=== PATIENT | female | born 1950 | race Caucasian/White ===

== ENCOUNTER 2021-11-14 08:02 | Inpatient (IN) ==
[2021-11-14] MEDS ORDERED: 0.9 % Sodium Chloride 500 ML IVC ONE (08:21)
[2021-11-14] MEDS ORDERED: Isovue-370 500 ML BOTTLE IVP ONE (08:47)
[2021-11-14 09:00] LABS: Bacteria,Urine Moderate per hpf (None-Few); Bilirubin,Urine Negative (Negative); Blood,Urine Moderate (Negative); Clarity,Urine Ex.Turbid (Clear); Color,Urine Orange (Yellow); Glucose,Urine (UA) Normal (Normal); Ketones,Urine Negative (Negative); Leukocyte Esterase,Urine Large (Negative); Mucus,Urine Few per lpf (None-Few); Nitrite,Urine Negative (Negative); Protein,Urine 100 mg/dL (Neg-Trace); Specific Gravity,Urine 1.013 (1.010-1.025); Squamous Epithelial Cell,Urine Moderate per hpf (None-Few); WBC,Urine TNTC per hpf (0-3)
[2021-11-14 09:42] LABS: Hemoglobin 10.6 g/dL (11.5-15.4); Mean Platelet Volume 10.6 fL (9.4-12.4)
[2021-11-14 09:43] LABS: Hematocrit 35.4 % (35.3-44.9); Mean Corpuscular HGB Conc 29.9 g/dL (31.6-35.5); Mean Corpuscular Hemoglobin 28.1 pg (28.0-33.3); Mean Corpuscular Volume 93.9 fL (83.0-100.0); Platelet Count 545 K/mcL (140-400); Red Blood Count 3.77 M/mcL (3.82-4.97)
[2021-11-14] MEDS ORDERED: cefTRIAXone 1,000 MG in 0.9 % Sodium Chloride Mini Bag 100 ML IVPB ONE (09:58)
[2021-11-14] MEDS ORDERED: Azithromycin 500 MG in 0.9 % Sodium Chloride 250 ML IVPB ONE (09:58)
[2021-11-14 10:03] LABS: Alanine Aminotransferase 23 Units/L (7-52); Albumin 2.6 g/dL (3.5-5.7); Albumin/Globulin Ratio 0.7 (1.1-2.2); Alkaline Phosphatase 157 Units/L (34-104); Amylase 91 Units/L (29-103); Aspartate Amino Transferase 32 Units/L (13-39); BUN/Creatinine Ratio 69 (6-26); Bilirubin,Direct 0.3 mg/dL (0.0-0.2); Bilirubin,Indirect 0.4 mg/dL (0.0-1.0); Bilirubin,Total 0.7 mg/dL (0.3-1.0); Blood Urea Nitrogen 72 mg/dL (8-23); Carbon Dioxide 13 mEq/L (23-29); Chloride 101 mEq/L (98-107); Globulin 3.8 g/dL (2.4-3.5); Glucose 288 mg/dL (70-105); Lipase 71 Units/L (11-82); Osmolality,Calculated 306 (280-300); Potassium 4.3 mEq/L (3.5-5.1); Sodium 132 mEq/L (136-145); Total Protein 6.4 g/dL (6.4-8.9); Troponin I < 0.03 ng/mL (< 0.04); eGFR For African Americans > 60 (> 60); eGFR For Non-African Americans 53 (> 60)
[2021-11-14] MEDS ORDERED: 0.9 % Sodium Chloride 1,000 ML IVC ONE (10:24)
[2021-11-14 10:31] LABS: INR 1.4; Prothrombin Time 15.4 Seconds (9.4-12.1)
[2021-11-14 10:34] LABS: Activated Partial Thrombo Time 25.1 Seconds (26.0-36.0)
[2021-11-14 11:00] LABS: Monocytes # 2.3 K/mcL (0.0-1.3); Neutrophils # 32.7 K/mcL (1.6-8.9); Platelet Clumps Few (Not Present); Platelet Estimate Increased (Normal); Toxic Granulation Present (Not Present)
[2021-11-14 15:12] LABS: Influenza A PCR Negative (Negative); Influenza B PCR Negative (Negative); Resp. Syncytial Virus PCR Negative (Negative)
[2021-11-14 15:23] LABS: SARS-CoV-2 by PCR (In House) Negative (Negative)
[2021-11-14] MEDS ORDERED: Acetaminophen 325 MG TABLET PO PRN (15:27)
[2021-11-14] MEDS ORDERED: Naloxone 0.4 MG/ML INJ IVP PRN (15:27)
[2021-11-14] MEDS ORDERED: Ringers Solution, Lactated 1,000 ML IVC ONE (15:37)
[2021-11-14] MEDS: Ringers Solution, Lactated 1,000 ML IVC SCH (22:15)
[2021-11-15 02:18] LABS: Alanine Aminotransferase 19 Units/L (7-52); Albumin 2.1 g/dL (3.5-5.7); Albumin/Globulin Ratio 0.6 (1.1-2.2); Alkaline Phosphatase 137 Units/L (34-104); Aspartate Amino Transferase 31 Units/L (13-39); BUN/Creatinine Ratio 89 (6-26); Bilirubin,Total 0.3 mg/dL (0.3-1.0); Blood Urea Nitrogen 62 mg/dL (8-23); Calcium 7.3 mg/dL (8.6-10.3); Carbon Dioxide 11 mEq/L (23-29); Chloride 111 mEq/L (98-107); Globulin 3.7 g/dL (2.4-3.5); Glucose 74 mg/dL (70-105); Lactate Dehydrogenase 242 Units/L (140-271); Magnesium 2.4 mg/dL (1.6-2.6); Osmolality,Calculated 298 (280-300); Phosphorous 3.9 mg/dL (2.7-4.5); Potassium 4.3 mEq/L (3.5-5.1); Sodium 136 mEq/L (136-145); Total Protein 5.8 g/dL (6.4-8.9); eGFR For African Americans > 60 (> 60); eGFR For Non-African Americans > 60 (> 60)
[2021-11-15 02:47] LABS: Carcinoembryonic Antigen 10.2 ng/mL (Less than 5.0)
[2021-11-15 02:48] LABS: Thyroid Stimulating Hormone 2.615 mcIU/mL (0.340-5.600)
[2021-11-15] MEDS: *HR* Enoxaparin 40 MG/0.4 ML SYRINGE SQ SCH (06:40)
[2021-11-15] MEDS: Ringers Solution, Lactated 1,000 ML IVC SCH (06:40)
[2021-11-15] MEDS ORDERED: cefTRIAXone 1,000 MG in 0.9 % Sodium Chloride Mini Bag 100 ML IVP SCH (09:00)
[2021-11-15] MEDS ORDERED: Azithromycin 500 MG in 0.9 % Sodium Chloride 250 ML IVPB SCH (09:00)
[2021-11-15 10:12] LABS: Hematocrit 30.5 % (35.3-44.9); Hemoglobin 9.3 g/dL (11.5-15.4); Mean Corpuscular HGB Conc 30.5 g/dL (31.6-35.5); Mean Corpuscular Hemoglobin 27.9 pg (28.0-33.3); Mean Corpuscular Volume 91.6 fL (83.0-100.0); Mean Platelet Volume 10.2 fL (9.4-12.4); Platelet Count 404 K/mcL (140-400); Red Blood Count 3.33 M/mcL (3.82-4.97); White Blood Count 17.3 K/mcL (4.3-11.1)
[2021-11-15 10:14] LABS: VBG HCO3 17 mEq/L (21-27); VBG PCO2 27 mmHg (41-51); VBG PH 7.41 pH Units (7.32-7.42); VBG PO2 101 mmHg (25-50)
[2021-11-15] MEDS: Sodium Bicarbonate 75 MEQ in 0.45 % Sodium Chloride 1,000 ML IVC SCH ×2 (10:57→21:18)
[2021-11-16 03:43] LABS: Basophils % 0.1 %; Hematocrit 27.5 % (35.3-44.9); Immature Granulocytes % 1.2 % (0-4); Lymphocytes % 12.2 %; Mean Corpuscular HGB Conc 30.9 g/dL (31.6-35.5); Mean Corpuscular Hemoglobin 28.5 pg (28.0-33.3); Mean Corpuscular Volume 92.3 fL (83.0-100.0); Mean Platelet Volume 10.3 fL (9.4-12.4); Monocytes # 0.7 K/mcL (0.0-1.3); Monocytes % 4.9 %; Neutrophils # 11.7 K/mcL (1.6-8.9); Platelet Count 357 K/mcL (140-400); Red Blood Count 2.98 M/mcL (3.82-4.97); Segmented Neutrophils % 81.6 %
[2021-11-16 03:47] LABS: Hemoglobin 8.5 g/dL (11.5-15.4); Lymphocytes # 1.7 K/mcL (0.6-4.6); White Blood Count 14.3 K/mcL (4.3-11.1)
[2021-11-16 04:00] LABS: BUN/Creatinine Ratio 61 (6-26); Blood Urea Nitrogen 35 mg/dL (8-23); Calcium 7.4 mg/dL (8.6-10.3); Carbon Dioxide 21 mEq/L (23-29); Chloride 111 mEq/L (98-107); Glucose 89 mg/dL (70-105); Osmolality,Calculated 299 (280-300); Potassium 3.4 mEq/L (3.5-5.1); Sodium 141 mEq/L (136-145); eGFR For African Americans > 60 (> 60); eGFR For Non-African Americans > 60 (> 60)
[2021-11-16] MEDS: *HR* Enoxaparin 40 MG/0.4 ML SYRINGE SQ SCH (07:01)
[2021-11-16] MEDS ORDERED: cefTRIAXone 1,000 MG in 0.9 % Sodium Chloride Mini Bag 100 ML IVPB SCH (09:00)
[2021-11-16] MEDS: Sodium Bicarbonate 75 MEQ in 0.45 % Sodium Chloride 1,000 ML IVC SCH ×2 (13:10→13:14)
[2021-11-16] MEDS: Piperacillin/Tazobactam 3.375 GM in 0.9 % Sodium Chloride Mini Bag 100 ML IVPB SCH (17:23)
[2021-11-17] MEDS: Piperacillin/Tazobactam 3.375 GM in 0.9 % Sodium Chloride Mini Bag 100 ML IVPB SCH ×4 (01:17→23:39)
[2021-11-17] MEDS: *HR* Enoxaparin 40 MG/0.4 ML SYRINGE SQ SCH (06:41)
[2021-11-17] MEDS: Sodium Bicarbonate 75 MEQ in 0.45 % Sodium Chloride 1,000 ML IVC SCH ×3 (10:46→20:58)
[2021-11-18] MEDS: *HR* Enoxaparin 40 MG/0.4 ML SYRINGE SQ SCH (06:17)
[2021-11-18] MEDS: Piperacillin/Tazobactam 3.375 GM in 0.9 % Sodium Chloride Mini Bag 100 ML IVPB SCH (07:50)
[2021-11-18 07:54] LABS: Hematocrit 28.6 % (35.3-44.9); Hemoglobin 8.6 g/dL (11.5-15.4); Mean Corpuscular HGB Conc 30.1 g/dL (31.6-35.5); Mean Corpuscular Hemoglobin 27.7 pg (28.0-33.3); Mean Platelet Volume 10.4 fL (9.4-12.4); Platelet Count 282 K/mcL (140-400); Red Blood Count 3.11 M/mcL (3.82-4.97); Red Cell Distribution Width 15.5 % (11.5-14.5); White Blood Count 10.3 K/mcL (4.3-11.1)
[2021-11-18] MEDS: Sodium Bicarbonate 75 MEQ in 0.45 % Sodium Chloride 1,000 ML IVC SCH (07:57)
[2021-11-18 08:18] LABS: BUN/Creatinine Ratio 24 (6-26); Blood Urea Nitrogen 12 mg/dL (8-23); Calcium 7.2 mg/dL (8.6-10.3); Carbon Dioxide 31 mEq/L (23-29); Chloride 102 mEq/L (98-107); Glucose 110 mg/dL (70-105); Osmolality,Calculated 292 (280-300); Potassium 2.6 mEq/L (3.5-5.1); Sodium 141 mEq/L (136-145); eGFR For African Americans > 60 (> 60); eGFR For Non-African Americans > 60 (> 60)
[2021-11-18 09:09] LABS: Magnesium 1.6 mg/dL (1.6-2.6); Phosphorous 1.9 mg/dL (2.7-4.5)
[2021-11-18] MEDS ORDERED: GuaiFENesin/Dextromethorphan TABLET PO PRN (11:28)
[2021-11-18] MEDS ORDERED: Menthol 1 EACH LOZENGE PO PRN (11:41)
[2021-11-19] MEDS: Nicotine 14 MG PATCH.TD24 TD SCH (09:56)
[2021-11-19] MEDS: Cefdinir 300 MG CAPSULE PO SCH ×2 (10:01→21:19)
[2021-11-20 07:14] VITALS: TEMP 98.2; O2SAT 93
[2021-11-20] MEDS: Nicotine 14 MG PATCH.TD24 TD SCH (07:48)
[2021-11-20] MEDS: Cefdinir 300 MG CAPSULE PO SCH (08:12)
[2021-11-20 08:32] LABS: Adenovirus Not Detected (Not Detect); Bordetella Pertussis Not Detected (Not Detect); Chlamydophila pneumoniae Not Detected (Not Detect); Coronavirus 229E Not Detected (Not Detect); Coronavirus HKU1 Not Detected (Not Detect); Coronavirus NL63 Not Detected (Not Detect); Coronavirus OC43 Not Detected (Not Detect); Human Metapneumovirus Not Detected (Not Detect); Human Rhinovirus/Enterovirus Not Detected (Not Detect); Influenza A Subtype 2009 H1 Not Detected (Not Detect); Influenza B Not Detected (Not Detect); Mycoplasma pneumoniae Not Detected (Not Detect); Parainfluenza Virus 1 Not Detected (Not Detect); Parainfluenza Virus 2 Not Detected (Not Detect); Parainfluenza Virus 3 Not Detected (Not Detect); Parainfluenza Virus 4 Not Detected (Not Detect); Respiratory Syncytial Virus Not Detected (Not Detect); SARS-CoV-2 Not Detected (Not Detect)
[2021-11-20 12:17] VITALS: BP 102/64; PULSE 88
== END 2021-11-20 16:23 | DRG 871 ==
LOC: 3ANU 08:02 → EMEROOARM 08:02 → SUATTDRO 15:55 → 3ANU 16:52
PROVIDERS: ADMIT Internal Medicine; ATTEND Internal Medicine